=== PATIENT | male | born 1975 | race Caucasian/White ===

== ENCOUNTER → 2017-02-20 | Outpatient (CLI) | payer OTHER ==
[~2017-02-20] MED LIST: ASPI81TA21 PO; EFFSR75 PO; LISI-526 PO; LORA-741 PO; METO25TA56 PO; OMEP20CA9 PO
--- NOTE | 2017-02-21 06:31 | PAP/PSG TECHNICIAN REPORT ---
[facility] Regional Property Manager Polysomnogram Report Study name: None Report date: 02/21/2017 Study date: 02/20/2017 Referring Physician: Geovany LINDSEY M.D. Name: ELICIA PADGETT Interpreting Physician: Namita Lindsey M.D. Date of : 1975 Regional Property Manager: Bunny Dickinson RPSGT. Sex: Male Age: 41 StudyType: PSG Weight: 231 lbs 16 inches Height: 41 years, Height 6' 0" Neck Circum: BMI: 31.33 Medications: LEXAPRO 10 MG, LOPRESSOR 25 MG, ASPIRIN 81 MG, OMEPRAZOLE 20 MG Patient History PATIENT HAS HISTORY OF DAYTIME SLEEPINESS AND FATIGUE. HIS SAYS THAT HE SNORES HEAVILY AND ALSO GASPS FOR AIR. HE IS HERE TODAY FOR AN EVALUATION OF MADAI. ESS = 11 RM 7 Parameters Monitored NPSG: E1-M2, E2-M1, Fp1-M2, Fp2-M1, F3-M2, F4-M2, F4-M1, C3-M2, C4-M2, C4-M1, O1-M2, O2-M2, O2-M1, T3-M2, T4-M1, P3-M2, P4-M1, CHIN1, CHIN2, HR, EKG, Legs, PFLOW, SNOR, FLOW, CFLOW, Tidal Volume, THOR, ABDO, SpO2, PLTH, CPRESS, ETCO2 Wave, ETCO2, pH Sleep Architecture Sleep Stages Time at Lights Off 10:14:26 PM STAGES Time (min.) TST (%) Time at Lights On 6:04:56 AM Wake 76.5 -- Total Recording Time (TRT) 471.00 min. N1 24.0 6 Total Sleep Period (TSP) 423.5 min. N2 242.0 61 Total Sleep Time (TST) 394.0min. N3 50.0 13 Awake Time 77.0 min. REM 78.0 20 Wake after Sleep Onset 30.0 min. Sleep Efficiency (SE) 84 % Sleep Onset Latency (SUSI) 46.5 min. Number of Stage 1 Shifts None Awakenings 32 Stage Changes 124 Number of REM periods 9 REM 78.0 20 REM Latency 89.5 min. NREM 316.0 80 Body Position Analysis Supine Right Left Side Prone Vertical Total Sleep Time (min.) 316.4 90.9 58.3 149.17 0.0 0.0 Total Sleep Time (%) 62% 23% 15% 38 0% N/A% Total Sleep Time REM (min.) 18.5 44.0 15.5 None 0.0 0.0 Total Sleep Time NREM (min.) 226.3 46.9 42.8 None 0.0 0.0 Intermittent Wake (min.) 71.6 1.9 3.0 None 0.0 0.0 Total Sleep Period (%) 64% None None None None None Arousals Myoclonus (PLM) * Events Count Index Events Count Index Spontaneous 30 5 Events Awake (PLMW) 55 43.1 Respiratory 12 2.1 Events Asleep w/ Arousal (PLMA) 11 1.7 PLM 11 2 Events Asleep w/o Arousal (PLMS) 117 17.8 Snoring 8 1 Total Asleep 128 19.5 Total 59 9 Total 183 23 Respiratory Analysis * CA OA MA CH H RERA Total Count 0 1 0 0 99 4 100 Index 0.0 0.2 0.0 0 15.1 1 15.8 Mean Duration 0.0 42.7 0.0 0.00 25.4 17.6 25.3 Longest Duration 0.0 42.7 0.0 0.00 0.0 20.0 58.9 Respiratory Event Summary Total Supine ~Supine Right Left Prone REM NREM Apneas Count 1 1 0 0 0 N/A 0 1 Index 0.2 0 0 0.0 0.0 N/A 0 0 Hypopneas (4% Desat) Count 99 51 48 38 10 N/A 38 61 Index 15.1 12.5 19 25.1 10.3 N/A 29.2 11.6 Apneas & All Hypopneas Count 100 52 48 38 10 N/A 38 62 Index 15.2 13 19 25 10 N/A 29.2 11.8 Respiratory Events (Intelligence Applications+All Hyp+RERA) Count 100 53 51 40 11 N/A 38 62 Index 15.8 13 21 26.4 11.3 N/A 30.0 12.3 Respiratory Related Arousal Count 12 53 1 0 1 N/A 1 13 Index 2.1 3 0 0 1 N/A 1 2 Snoring Analysis Supine Right Left Prone REM NREM Total Snore duration 21.6 min Snores count 222 474 69 N/A 183 582 765 Snore mean duration 1.7 Sec Snores index 54 313 71 N/A 140.8 110.5 116.5 TST with snoring (%) 5.5% Desaturation Event Summary: Minimum %SpO2 Event Count Mean/Min/Max Duration(sec.) Desaturation Index % Time In Bed > 90 108 33.6 / 9.3 / 60.0 18.4 77.8 86 - 90 5 32.7 / 7.0 / 62.0 3.1 21.5 81 - 85 0 N/A 0.0 0.6 76 - 80 0 N/A 0.0 0.1 71 - 75 0 N/A 0.0 0.0 66 - 70 0 N/A 0.0 0.0 61 - 65 0 N/A 0.0 0.0 56 - 60 0 N/A 0.0 0.0 51 - 55 0 N/A 0.0 0.0 < 50 0 N/A 0.0 0.0 Total REM NREM Awake <50% 0.0 min. 0.0 min. 0.0 min. 0.0 min. 51 - 60% 0.0 min. 0.0 min. 0.0 min. 0.0 min. 61 - 70% 0.0 min. 0.0 min. 0.0 min. 0.0 min. 71 - 80% 0.4 min. 0.0 min. 0.1 min. 0.3 min. 81 - 90% 100.5 min. 17.8 min. 76.4 min. 6.4 min. 91 - 100% 352.8 min. 59.0 min. 233.2 min. 60.6 min. Average 92 92 91 92 Minimum SpO2 72 84 79 72 Desaturation Event Index 14.2 28.5 12.9 7.1 # Desat. Events below 89% 37 6 31 0 Time(%) with Saturation below 89% 4.7 0.5 3.8 0.4 Time(min.) with Saturation below 89% 21.5 2.4 17.4 1.8 Time (mins) REM (mins) NREM (mins) % of TST SpO2 Below 90% 88 27 N61 11.8 SpO2 Below 88% 20 0 0 2 Heart Rate Analysis Min (bpm) Max (bpm) Average (bpm) Awake 44 225 55 NREM 43 225 54 REM 45 84 60 Overall 43 225 55 Supplemental O2 Values Minimum O2 level: None Value Start Time End Time Regional Property Manager Comments Mr. Padgett slept in the right, left and supine positions. PVC's and PAC's noted. Leg movements noted. No bruxism noted. Snoring was noted and scored as a 3 on a scale of 1 through 5. (0=no snoring, 5=snoring loud enough to be heard through a closed door or down the moya way) Mr. Padgett awoke to use the restroom 1 time during the night. Mr. Padgett stated I did not sleep as well as I do when I am in my own bed. The final report will be interpreted and signed by a sleep physician. The completed physician report will then be placed in the patient medical record. Therapy (cm H2O) 0 TIB (min.) 470.5 TST (min.) 394.0 Sleep Onset (min.) 46.5 REM Onset From Sleep (min.) 89.5 Sleep Efficiency % 84 Wakefulness (%) 16 Wakefulness (min.) 77.0 NREM 1 (%) 6 NREM 1 (min.) 24.0 NREM 2 (%) 61 NREM 2 (min.) 242.0 NREM 3 (%) 13 NREM 3 (min.) 50.0 REM (%) 20 REM (min.) 78.0 # Arousals 59 Arousal Index 9 # Snore 765 Snore Index 116.5 AHI 15.2 AHI Supine 13 AHI Non-Supine 19 NREM AHI 11.8 REM AHI 29.2 RDI 15.8 # Obstructive Apnea 1 # Central Apnea 0 # Mixed Apnea 0 # Hypopneas 99 RERAs 4 Total Respiratory Events 104 Time Below SpO2 89% (min.) 19.8 Mean NREM SpO2 (%) 91 Mean REM SpO2 (%) 92 Mean Sleep SpO2 (%) 91 Min NREM SpO2 (%) 79 Min REM SpO2 (%) 84 Position Supine (min.) 316.4 Position Non-supine (min.) 149.2 LM Index Sleep 19.5 LM Index NREM 16.3 LM Index REM 32.3 Mean Heart Rate (bpm) 55 Min Heart Rate (bpm) 43
--- NOTE | 2017-03-11 11:57 | POLYSOMNOGRAPH REPORT ---
REFERRING PERSON: Dr. Lilliana Lindsey. CLIPPER AND TURNER: Bunny Dickinson. Mr. Carolina is a 41-year-old male with excessive daytime sleepiness and fatigue. His says that he snores heavily and also gasps for air from sleep. His [place] sleepiness scale score on the evening of this study is 11. BMI is 31.33. Following the technical and digital specifications of the [place] [employer] (AASM) a standard diagnostic polysomnogram was performed monitoring EEG, EOG, EMG (chin and leg deviations), oxygen saturation, body position, digital video, respiratory effort and airflow. The sleep Stage and event scoring was based on the AASM Manual for the Scoring of Sleep and Associated Events 2007 edition. Apneas are defined as a drop in the peak thermal sensor excursion by >90% of baseline for at least 10 seconds. Hypopneas were scored using the 4% oxygen desaturation rule (4A-Medicare) and a decrease in the nasal pressure excursions by >30% of baseline for at least 10 seconds. Respiratory effort-related arousal (RERA's) is defined as a sequence of breaths lasting at least 10 seconds characterized by increasing respiratory effort or flattening of the nasal pressure waveform leading to an arousal from sleep when the sequence of breaths does not meet criteria for an apnea or hypopnea. Apnea Hypopnea index (AHI) is defined as the number of apneas and hypopneas occurring in an hour of sleep. Respiratory disturbance index (RDI) is defined as the number of apneas, hypopneas, and RERA's occurring in an hour of sleep. Mr. Vergaras total sleep period time was 423.5 minutes. Total sleep time was 394 minutes. Sleep efficiency was 84%. Latency to sleep onset was 46.5 minutes with wake after sleep onset of 30 minutes. Total non-REM sleep time was 316 minutes. He spent 6% of that time in N1 sleep, 61% in N2 sleep and 13% in N3 sleep. REM latency was 89.5 minutes. Total REM sleep time was 78 minutes or 20% of total sleep time. There were 59 cortical arousals from sleep. 30 of these arousals were spontaneous, 12 were due to respiratory events, 11 due to periodic limb movements of sleep and 8 were due to snoring. There was 128 periodic limb movements noted on this test. Limb movement index was 19.5. Limb movement with arousal index was 1.7. There were no central, one obstructive and no mixed apneas on this test. However, there were 99 hypopnea and 4 RERA. Apnea-hypopnea index was 15.2 consistent with moderately severe sleep apnea. Supine AHI was 13, non-supine AHI was 19 and REM AHI was 29.2. There were 765 snoring events recorded. Total sleep time with snoring was 5.5%. Mean saturation was 92% with desaturations briefly to 72%. Saturations were less than 89% for 21.5 minutes of recorded time. This is significant nocturnal hypoxemia. PVCs and PACs were noted on EKG monitoring. Heart rates ranged from a low of 43 beats per minute to a high of 112 beats per minute. IMPRESSION AND PLAN: A 41-year-old male with evidence of moderately severe sleep apnea and significant nocturnal hypoxemia on this study. 1. This patient would likely benefit from positive airway pressure therapy. He should return to the sleep lab for a full night titration and then based on those results, be started on equipment at home. A download from his machine should be reviewed in 1 month both to check compliance as well as AHI and further pressure adjustments can occur at that time. 2. Alternatively, this patient could be started on auto titrating CPAP pressures of 5-15 cm. A download reviewed in 1 month and set to optimal pressure at that time. 3. Should this patient be unwilling or unable to tolerate CPAP therapy, he should be referred to ear, nose and throat or oral surgery/dental medicine to discuss alternative treatments for sleep disordered breathing.
== END | disposition home or self-care (01) ==
LOC: C.NEUR 21:00
PROVIDERS: ATTEND Family Medicine
DX: G47.33 Obstructive sleep apnea (adult) (pediatric) (principal)

== ENCOUNTER 2017-08-05 18:14 | Observation (INO) | payer OTHER ==
[~2017-08-05] VITALS: Ht 182.9 cm; Wt 105.1 kg
[2017-08-05] MEDS ORDERED: ASPIRIN 81 MG CHEW PO STA (19:04)
--- NOTE | 2017-08-05 19:18 | DIAGNOSTIC IMAGING REPORT ---
CHEST ONE VIEW PORTABLE HISTORY: Atypical CHEST PAIN COMPARISON: Chest 11/04/2013. FINDINGS: The lungs are clear. Cardiac silhouette is normal in size. No pleural effusions. No pneumothorax. IMPRESSION: No acute process. Electronically signed by: David Fairchild M.D. 08/05/2017 7:17 PM Dictated Date/Time: 08/05/2017 7:14 PM
[2017-08-05 19:37] LABS: BASO % 0.6 %; BASO ABS # 0.03 K/uL (0-0.2); COMPLETE YES; EOS % 3.9 %; HEMATOCRIT 46.6 % (42-52); IG% 0.2 %; LYMPH % 28.7 %; LYMPH ABS # 1.39 K/uL (1.2-3.4); MEAN CELL VOLUME 84.1 fL (80-100); MEAN CORPUSCULAR HEMOGLOBIN 29.6 pg (25-34); MEAN CORPUSCULAR HGB CONC 35.2 g/dl (32-36); MEAN PLATELET VOLUME 9.9 fL (7.4-10.4); MONO % 8.5 %; NEUT % 58.1 %; PLATELET COUNT 186 K/uL (130-400); RED BLOOD COUNT 5.54 M/uL (4.7-6.1); WHITE BLOOD COUNT 4.84 K/uL (4.8-10.8)
[2017-08-05 19:58] LABS: ALT/SGPT 45 U/L (12-78); BLOOD UREA NITROGEN 10 mg/dl (7-18); BUN/CREATININE RATIO 10.7 (10-20); CALCIUM 9.1 mg/dl (8.5-10.1); CARBON DIOXIDE 26 mmol/L (21-32); CHLORIDE 106 mmol/L (98-107); CREATININE 0.96 mg/dl (0.60-1.40); GLUCOSE 90 mg/dl (70-99); POTASSIUM 3.7 mmol/L (3.5-5.1); SODIUM 139 mmol/L (136-145)
[2017-08-05 20:04] LABS: ALKALINE PHOSPHATASE 68 U/L (45-117); AST/SGOT 27 U/L (15-37); CKMB/CK RATIO 1.8 (0-3.0)
--- NOTE | 2017-08-05 20:22 | EMERGENCY ROOM VISIT NOTE ---
History Report prepared by Serjio: Noelle Faust Under the Supervision of: Dr. Gordo Acosta M.D. First contact with patient: 19:01 Chief Complaint: CARDIAC ASSESSMENT Stated Complaint: CHEST PAIN, HEAVINESS IN CHEST Nursing Triage Summary: pt reports started with mid sternal chest heaviness over the weekend , reports exertional sob with ST today denies NV History of Present Illness The patient is a 42 year old male who presents to the Emergency Room with complaints of intermittent left sided chest pain for the past 3 days. He rates his discomfort as a 3/10 and describes it as feeling like heaviness. Today he developed shortness of breath with exertion, some diaphoresis, nausea and a headache, so he came to the ED. He admits to a strong family history of early heart disease in the 's. The patient has a history of hypertension and notes he takes daily Metoprolol and Lisinopril. He did take his Metoprolol this morning but has yet to take the Lisinopril. He follows with Dr. Alexander of [facility]. He has not undergone a stress test in over 4 years. The patient denies LOC, fevers, chills, visual changes, neck pain, vomiting, abdominal pain, back pain, melena, hematochezia, urinary symptoms, numbness, weakness, lymphadenopathy, rash, or other complaints. Source of History: patient Onset: 3 days DIRECTOR OF EPIDEMIOLOGY Position: chest Symptom Intensity: 3/10 Quality: other (heaviness) Timing: intermittent Associated Symptoms: + headache, + SOB, + nausea Review of Systems See HPI for pertinent positives and negatives. A total of ten systems were reviewed and were otherwise negative. Past Medical & Surgical Medical Problems: (1) Sleep apnea Family History Heart disease Social History Smoking Status: Never Smoker Alcohol Use: none Drug Use: none Marital Status: Housing Status: lives with family Occupation Status: employed Current/Historical Medications Scheduled Aspirin Enteric Coated (Ecotrin Or Generic), 81 MG PO DAILY Lisinopril (Prinivil), 30 MG PO QPM Metoprolol Tartrate (Lopressor) (Lopressor), 25 MG PO QAM Omeprazole (Prilosec), 20 MG PO DAILY Scheduled PRN Lorazepam (Ativan), 0.5 MG PO DAILY PRN for Anxiety Allergies Coded Allergies: Naproxen (Verified Allergy, tongue swelling, 11/04/13) Physical Exam Vital Signs Date Time Temp Pulse Resp B/P (MAP) Pulse Ox O2 Delivery O2 Flow Rate FiO2 08/05/17 21:00 73 17 127/86 96 Room Air 08/05/17 20:33 70 20 138/79 96 Room Air 08/05/17 19:40 81 21 138/86 96 Room Air 08/05/17 19:23 77 18 117/81 95 Room Air 08/05/17 19:15 71 08/05/17 19:09 94 Room Air 08/05/17 18:17 36.6 66 18 157/97 97 Room Air Physical Exam GENERAL: Awake, alert, well-appearing, in no distress HENT: Normocephalic, atraumatic. Oropharynx unremarkable. EYES: Normal conjunctiva. Sclera non-icteric. NECK: Supple. No nuchal rigidity. FROM. No JVD. RESPIRATORY: Clear to auscultation. CARDIAC: Regular rate, normal rhythm. Extremities warm and well perfused. Pulses equal. ABDOMEN: Soft, non-distended. No tenderness to palpation. No rebound or guarding. No masses. RECTAL: Deferred. MUSCULOSKELETAL: Chest examination reveals no tenderness. The back is symmetrical on inspection without obvious abnormality. There is no CVA tenderness to palpation. No joint edema. LOWER EXTREMITIES: Calves are equal size bilaterally and non-tender. No edema. No discoloration. NEURO: Normal sensorium. No sensory or motor deficits noted. SKIN: No rash or jaundice noted. Medical Decision & Procedures ER Provider Diagnostic Interpretation: Radiology results as stated below per my review and radiologist interpretation: CHEST ONE VIEW PORTABLE HISTORY: Atypical CHEST PAIN COMPARISON: Chest 11/04/2013. FINDINGS: The lungs are clear. Cardiac silhouette is normal in size. No pleural effusions. No pneumothorax. IMPRESSION: No acute process. Electronically signed by: David Fairchild M.D. 08/05/2017 7:17 PM Laboratory Results 08/05/17 19:28 Red Blood Count 5.54, Mean Corpuscular Volume 84.1, Mean Corpuscular Hemoglobin 29.6, Mean Corpuscular Hemoglobin Concent 35.2, Mean Platelet Volume 9.9, Neutrophils (%) (Auto) 58.1, Lymphocytes (%) (Auto) 28.7, Monocytes (%) (Auto) 8.5, Eosinophils (%) (Auto) 3.9, Basophils (%) (Auto) 0.6, Neutrophils # (Auto) 2.81, Lymphocytes # (Auto) 1.39, Monocytes # (Auto) 0.41, Eosinophils # (Auto) 0.19, Basophils # (Auto) 0.03 08/05/17 19:28 Test 08/05/17 19:21 08/05/17 19:28 Prothrombin Time 10.6 SECONDS (9.0-12.0) Prothromb Time International Ratio 1.0 (0.9-1.1) White Blood Count 4.84 K/uL (4.8-10.8) Red Blood Count 5.54 M/uL (4.7-6.1) Hemoglobin 16.4 g/dL (14.0-18.0) Hematocrit 46.6 % (42-52) Mean Corpuscular Volume 84.1 fL (80-100) Mean Corpuscular Hemoglobin 29.6 pg (25-34) Mean Corpuscular Hemoglobin Concent 35.2 g/dl (32-36) Platelet Count 186 K/uL (130-400) Mean Platelet Volume 9.9 fL (7.4-10.4) Neutrophils (%) (Auto) 58.1 % Lymphocytes (%) (Auto) 28.7 % Monocytes (%) (Auto) 8.5 % Eosinophils (%) (Auto) 3.9 % Basophils (%) (Auto) 0.6 % Neutrophils # (Auto) 2.81 K/uL (1.4-6.5) Lymphocytes # (Auto) 1.39 K/uL (1.2-3.4) Monocytes # (Auto) 0.41 K/uL (0.11-0.59) Eosinophils # (Auto) 0.19 K/uL (0-0.5) Basophils # (Auto) 0.03 K/uL (0-0.2) RDW Standard Deviation 37.6 fL (36.4-46.3) RDW Coefficient of Variation 12.3 % (11.5-14.5) Immature Granulocyte % (Auto) 0.2 % Immature Granulocyte # (Auto) 0.01 K/uL (0.00-0.02) Anion Gap 7.0 mmol/L (3-11) Est Creatinine Clear Calc Drug Dose 126.7 ml/min Estimated GFR () 112.5 Estimated GFR (Non- 97.1 BUN/Creatinine Ratio 10.7 (10-20) Calcium Level 9.1 mg/dl (8.5-10.1) Magnesium Level 2.0 mg/dl (1.8-2.4) Total Bilirubin 1.0 mg/dl (0.2-1) Direct Bilirubin 0.2 mg/dl (0-0.2) Aspartate Amino Transf (AST/SGOT) 27 U/L (15-37) Alanine Aminotransferase (ALT/SGPT) 45 U/L (12-78) Alkaline Phosphatase 68 U/L (45-117) Total Protein 7.7 gm/dl (6.4-8.2) Albumin 4.3 gm/dl (3.4-5.0) Lipase 152 U/L (73-393) Laboratory results reviewed by me Medications Administered Medications (Trade) Dose Ordered Sig/Atif Route Start Time Stop Time Status Last Admin Dose Admin Aspirin (Aspirin Chew) 324 mg NOW STAT PO 08/05/17 19:04 08/05/17 19:08 DC 08/05/17 19:35 324 MG ECG Rate (beats per minute): 71 Rhythm: sinus with SA Findings: Q waves (Inferior), no acute ischemic change, no ectopy Change: no significant change (from EKG on 11/04/2013) ED Course 1902: The patient was evaluated in room B12. A complete history and physical exam was performed. 1903: Aspirin 324 mg PO. 2021: I discussed the patients case with Dr. Bianchi, [facility] Hospitalist. The patient will be further evaluated. 2024: I reevaluated the patient. He is resting comfortably. I discussed my recommendation he remain in the hospital for further evaluation and management and he verbalized complete understanding and agreement. Medical Decision Triage Nursing notes reviewed. The patient's presentation and history were concerning for chest pain. Etiologies such as cardiac ischemia, aortic dissection, pulmonary embolism, pneumonia, pneumothorax, musculoskeletal, infections, gastrointestinal, as well as others were entertained. The patient was evaluated. Clinically he was doing well. He was given aspirin. His ECG did not reveal any evidence of acute ischemic change. He has had on and off chest pain all weekend. He has an extensive family history of early coronary disease. He states that over 4 years since his last stress test. The patient had an unremarkable chest x-ray. His CBC, chemistry panel, LFTs, lipase, and cardiac markers were unremarkable. The patient has high risk for coronary disease. He has a concerning story given the left-sided pain he had some diaphoresis as well as shortness of breath. The patient had a consultation placed with internal medicine and was evaluated in the Emergency Room for further management. Medication Reconcilliation Current Medication List: was personally reviewed by me Blood Pressure Screening Patient's blood pressure: Normal blood pressure Blood pressure disposition: Did not require urgent referral Consults Time Called: 2019 Consulting Physician[facility] Return[facility] Call: 2021 I discussed the patients case with Noe Bermudez. The patient will be further evaluated. Impression Primary Impression: Left sided chest pain Scribe Attestation The scribe's documentation has been prepared under my direction and personally reviewed by me in its entirety. I confirm that the note above accurately reflects all work, treatment, procedures, and medical decision making performed by me. Departure Information Dispostion Being Evaluated By Hospitalist Bela Monae M.D. (PCP) Patient Instructions My [facility]
[2017-08-05 22:30] VITALS: BP 127/81; PULSE 63; TEMP 36.5; O2SAT 96
[2017-08-05] MEDS ORDERED: NITROGLYCERIN 0.4 MG SL PER TAB CHARGE SL PRN (22:30)
[2017-08-05] MEDS ORDERED: MoRPHine SULFATE 2 MG/ML CARP IV PRN (22:30)
[2017-08-05] MEDS ORDERED: ACETAMINOPHEN 325 MG TAB PO PRN (22:30)
[2017-08-05] MEDS ORDERED: ONDANSETRON INJ 2 MG/ML 2 ML VIAL IV PRN (22:30)
[2017-08-05] MEDS ORDERED: POLYETHYLENE (MIRALAX) 17 GM PACK PO PRN (22:30)
[2017-08-05] MEDS ORDERED: LORAZEPAM 0.5 MG TAB PO PRN (22:30)
[2017-08-05] MEDS ORDERED: ATORVASTATIN 40 MG TAB PO ONE (22:30)
[2017-08-05 22:35] VITALS: BP 127/81; PULSE 63; TEMP 36.5; O2SAT 96; Ht 182.9 cm; Wt 105.1 kg
--- NOTE | 2017-08-05 22:36 | History and Physical ---
History & Physical Date & Time of Service: Aug 05, 2017 at 22:28 Chief Complaint: Chest Pain, Heaviness In Chest Primary Care Physician: Bela Lopez M.D. History of Present Illness Source: patient, family, clinic records, hospital records 42 yo M with h/o HTN and strong family history of early CAD presents with constant chest pain that began on Saturday. No precipitating triggers making the pain worse except for stress, and he defines the discomfort as a pressure. He states that he was alone at work tonight and was able to run flights of stairs without making the pain or shortness of breath any worse, but the prolonged nature of the abnormal pressure is what made him concerned to come in. Per his he has had multiple episodes of discomfort in his chest that made her worried but he refused to see a doctor during those times. The frequency of this is described as twice weekly on average. 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 He does reports some diaphoresis, nausea and shortness of breath that are associated with the chest pain. He otherwise denies any fevers, chills, visual changes, neck pain, vomiting, abdominal or back pain, GI bleeding issues, urinary issues, numbness weakness or any skin changes. He reports that his last stress test was over 4 years ago. 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 Surgical Problems: (1) S/P appy Status: Chronic Family History Heart disease Social History Smoking Status: Never Smoker Smokeless Tobacco Use: Unknown Drug Use: none Marital Status: Occupational Status: employed Immunizations History of Influenza Vaccine: No History of Tetanus Vaccine?: Yes History of Pneumococcal: Yes History of Hepatitis B Vaccine: Yes Multi-Drug Resistant Organisms History of MDRO: No Allergies Coded Allergies: Naproxen (Verified Allergy, tongue swelling, 11/04/13) Home Medications Scheduled Aspirin Enteric Coated (Ecotrin Or Generic), 81 MG PO DAILY Lisinopril (Prinivil), 30 MG PO QPM Metoprolol Tartrate (Lopressor) (Lopressor), 25 MG PO QAM Omeprazole (Prilosec), 20 MG PO DAILY Scheduled PRN Lorazepam (Ativan), 0.5 MG PO DAILY PRN for Anxiety Review of Systems At least ten systems reviewed and negative except as indicated in HPI. Physical Exam Vital Signs Date Time Temp Pulse Resp B/P (MAP) Pulse Ox O2 Delivery O2 Flow Rate FiO2 08/05/17 22:16 73 16 130/88 97 08/05/17 21:43 73 16 130/88 97 Room Air 08/05/17 21:00 73 17 127/86 96 Room Air 08/05/17 20:33 70 20 138/79 96 Room Air 08/05/17 19:40 81 21 138/86 96 Room Air 08/05/17 19:23 77 18 117/81 95 Room Air 08/05/17 19:15 71 08/05/17 19:09 94 Room Air 08/05/17 18:17 36.6 66 18 157/97 97 Room Air General Appearance: WD/WN, no apparent distress Head: normocephalic, atraumatic Eyes: normal inspection, PERRL, sclerae normal ENT: hearing grossly normal, pharynx normal Neck: supple, no adenopathy, no JVD, trachea midline Respiratory/Chest: chest non-tender, lungs clear, normal breath sounds, no respiratory distress, no accessory muscle use Cardiovascular: regular rate, rhythm, no edema, no gallop, no JVD, no murmur, normal peripheral pulses Abdomen/GI: normal bowel sounds, non tender, soft Back: normal inspection Extremities/Musculoskelatal: normal inspection, no calf tenderness, no pedal edema 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, no motor/sensory deficits, alert, normal mood/affect, oriented x 3 Skin: normal color, warm/dry, no rash Diagnostics Laboratory Results 08/05/17 19:28 Red Blood Count 5.54, Mean Corpuscular Volume 84.1, Mean Corpuscular Hemoglobin 29.6, Mean Corpuscular Hemoglobin Concent 35.2, Mean Platelet Volume 9.9, Neutrophils (%) (Auto) 58.1, Lymphocytes (%) (Auto) 28.7, Monocytes (%) (Auto) 8.5, Eosinophils (%) (Auto) 3.9, Basophils (%) (Auto) 0.6, Neutrophils # (Auto) 2.81, Lymphocytes # (Auto) 1.39, Monocytes # (Auto) 0.41, Eosinophils # (Auto) 0.19, Basophils # (Auto) 0.03 08/05/17 19:28 Test 08/05/17 19:28 08/05/17 22:25 White Blood Count 4.84 K/uL (4.8-10.8) Red Blood Count 5.54 M/uL (4.7-6.1) Hemoglobin 16.4 g/dL (14.0-18.0) Hematocrit 46.6 % (42-52) Mean Corpuscular Volume 84.1 fL (80-100) Mean Corpuscular Hemoglobin 29.6 pg (25-34) Mean Corpuscular Hemoglobin Concent 35.2 g/dl (32-36) Platelet Count 186 K/uL (130-400) Mean Platelet Volume 9.9 fL (7.4-10.4) Neutrophils (%) (Auto) 58.1 % Lymphocytes (%) (Auto) 28.7 % Monocytes (%) (Auto) 8.5 % Eosinophils (%) (Auto) 3.9 % Basophils (%) (Auto) 0.6 % Neutrophils # (Auto) 2.81 K/uL (1.4-6.5) Lymphocytes # (Auto) 1.39 K/uL (1.2-3.4) Monocytes # (Auto) 0.41 K/uL (0.11-0.59) Eosinophils # (Auto) 0.19 K/uL (0-0.5) Basophils # (Auto) 0.03 K/uL (0-0.2) RDW Standard Deviation 37.6 fL (36.4-46.3) RDW Coefficient of Variation 12.3 % (11.5-14.5) Immature Granulocyte % (Auto) 0.2 % Immature Granulocyte # (Auto) 0.01 K/uL (0.00-0.02) Anion Gap 7.0 mmol/L (3-11) Est Creatinine Clear Calc Drug Dose 126.7 ml/min Estimated GFR () 112.5 Estimated GFR (Non- 97.1 BUN/Creatinine Ratio 10.7 (10-20) Calcium Level 9.1 mg/dl (8.5-10.1) Total Bilirubin 1.0 mg/dl (0.2-1) Direct Bilirubin 0.2 mg/dl (0-0.2) Aspartate Amino Transf (AST/SGOT) 27 U/L (15-37) Alanine Aminotransferase (ALT/SGPT) 45 U/L (12-78) Alkaline Phosphatase 68 U/L (45-117) Total Creatine Kinase 180 U/L (39-308) Creatine Kinase MB 3.2 ng/ml (0.5-3.6) Creatine Kinase MB Ratio 1.8 (0-3.0) Troponin I < 0.015 ng/ml (0-0.045) Total Protein 7.7 gm/dl (6.4-8.2) Albumin 4.3 gm/dl (3.4-5.0) Lipase 152 U/L (73-393) Results Past 24 Hours Test 08/05/17 19:28 08/05/17 22:25 Range/Units White Blood Count 4.84 4.8-10.8 K/uL Red Blood Count 5.54 4.7-6.1 M/uL Hemoglobin 16.4 14.0-18.0 g/dL Hematocrit 46.6 42-52 % Mean Corpuscular Volume 84.1 80-100 fL Mean Corpuscular Hemoglobin 29.6 25-34 pg Mean Corpuscular Hemoglobin Concent 35.2 32-36 g/dl Platelet Count 186 130-400 K/uL Mean Platelet Volume 9.9 7.4-10.4 fL Neutrophils (%) (Auto) 58.1 % Lymphocytes (%) (Auto) 28.7 % Monocytes (%) (Auto) 8.5 % Eosinophils (%) (Auto) 3.9 % Basophils (%) (Auto) 0.6 % Neutrophils # (Auto) 2.81 1.4-6.5 K/uL Lymphocytes # (Auto) 1.39 1.2-3.4 K/uL Monocytes # (Auto) 0.41 0.11-0.59 K/uL Eosinophils # (Auto) 0.19 0-0.5 K/uL Basophils # (Auto) 0.03 0-0.2 K/uL RDW Standard Deviation 37.6 36.4-46.3 fL RDW Coefficient of Variation 12.3 11.5-14.5 % Immature Granulocyte % (Auto) 0.2 % Immature Granulocyte # (Auto) 0.01 0.00-0.02 K/uL Sodium Level 139 136-145 mmol/L Potassium Level 3.7 3.5-5.1 mmol/L Chloride Level 106 98-107 mmol/L Carbon Dioxide Level 26 21-32 mmol/L Anion Gap 7.0 3-11 mmol/L Blood Urea Nitrogen 10 7-18 mg/dl Creatinine 0.96 0.60-1.40 mg/dl Est Creatinine Clear Calc Drug Dose 126.7 ml/min Estimated GFR () 112.5 Estimated GFR (Non- 97.1 BUN/Creatinine Ratio 10.7 10-20 Random Glucose 90 70-99 mg/dl Calcium Level 9.1 8.5-10.1 mg/dl Total Bilirubin 1.0 0.2-1 mg/dl Direct Bilirubin 0.2 0-0.2 mg/dl Aspartate Amino Transf (AST/SGOT) 27 15-37 U/L Alanine Aminotransferase (ALT/SGPT) 45 12-78 U/L Alkaline Phosphatase 68 45-117 U/L Total Creatine Kinase 180 39-308 U/L Creatine Kinase MB 3.2 0.5-3.6 ng/ml Creatine Kinase MB Ratio 1.8 0-3.0 Troponin I < 0.015 0-0.045 ng/ml Total Protein 7.7 6.4-8.2 gm/dl Albumin 4.3 3.4-5.0 gm/dl Lipase 152 73-393 U/L Diagnostic Radiology CHEST ONE VIEW PORTABLE HISTORY: Atypical CHEST PAIN COMPARISON: Chest 11/04/2013. FINDINGS: The lungs are clear. Cardiac silhouette is normal in size. No pleural effusions. No pneumothorax. IMPRESSION: No acute process. EKG SR 71 Impression Assessment and Plan 42 yo M with family history of CAD and HTN presents with chest pain. 1. Chest pain- risk factors for CAD including family history and HTN. ASA, Lipitor 80, nitro given. Currently pain-free. Trend trops. Morphine/Nitro PRN. 2. HTN-cont current meds 3. MADAI-CPAP ordered DVT proph-Lovenox Full Code Dispo-tele [facility] Level of Care Telemetry Resuscitation Status FULL RESUSCITATION VTE Prophylaxis VTE Risk Assessment Done? Y/N: Yes Risk Level: Moderate Given or contraindicated: Enoxaparin (Lovenox)SQ
[2017-08-05 23:23] LABS: PROTHROMBIN TIME (PATIENT) 10.6 SECONDS (9.0-12.0)
[2017-08-05 23:38] VITALS: PULSE 70; O2SAT 97
[2017-08-06 00:12] VITALS: BP 126/80; PULSE 64; TEMP 36.5; O2SAT 93
[2017-08-06 01:51] LABS: CKMB/CK RATIO 2.4 (0-3.0)
[2017-08-06 04:00] VITALS: BP 119/72; PULSE 55; TEMP 36.5; O2SAT 98
[2017-08-06 07:16] LABS: HEMATOCRIT 42.8 % (42-52); MEAN CELL VOLUME 84.8 fL (80-100); MEAN CORPUSCULAR HEMOGLOBIN 30.3 pg (25-34); MEAN CORPUSCULAR HGB CONC 35.7 g/dl (32-36); MEAN PLATELET VOLUME 9.8 fL (7.4-10.4); PLATELET COUNT 148 K/uL (130-400); RED BLOOD COUNT 5.05 M/uL (4.7-6.1)
[2017-08-06 07:23] LABS: PROTHROMBIN TIME (PATIENT) 10.7 SECONDS (9.0-12.0)
[2017-08-06 07:26] VITALS: BP 113/74; PULSE 61; TEMP 36.7; O2SAT 95
[2017-08-06 08:04] LABS: BLOOD UREA NITROGEN 10 mg/dl (7-18); BUN/CREATININE RATIO 11.9 (10-20); CALCIUM 8.4 mg/dl (8.5-10.1); CARBON DIOXIDE 25 mmol/L (21-32); CHLORIDE 107 mmol/L (98-107); CREATININE 0.82 mg/dl (0.60-1.40); GLUCOSE 91 mg/dl (70-99); POTASSIUM 3.7 mmol/L (3.5-5.1); SODIUM 140 mmol/L (136-145)
[2017-08-06 08:10] LABS: CHOLESTEROL 163 mg/dl (0-200); CKMB/CK RATIO 2.3 (0-3.0); HDL CHOLESTEROL 41 mg/dl; LDL CHOLESTEROL CALCULATED 99 mg/dl; TRIGLYCERIDES 113 mg/dl (0-150); VERY LOW DENSITY LIPOPROT CALC 23 mg/dl
[2017-08-06] MEDS ORDERED: PANTOprazole SOD 40 MG TAB PO SCH (09:00)
[2017-08-06] MEDS ORDERED: ASPIRIN 81 MG ECTAB PO SCH (09:00)
[2017-08-06] MEDS ORDERED: ENOXAPARIN 40 MG/0.4 ML SYR SC SCH (09:00)
[2017-08-06] MEDS ORDERED: LISINOPRIL 20 MG TAB PO SCH (09:00)
[2017-08-06] MEDS ORDERED: METOPROLOL TARTRATE 25 MG TAB PO SCH (09:00)
[2017-08-06] MEDS ORDERED: PERFLUTREN LIPID MICROSPHERE (DEFINITY) IV ONE (10:39)
[2017-08-06 11:55] VITALS: BP 111/73; PULSE 74; TEMP 36.7; O2SAT 95
--- NOTE | 2017-08-06 12:52 | Progress Note ---
Internal Med Progress Note Date of Service: Aug 06, 2017. Provider Documentation: SUBJECTIVE: The patient was seen and examined Admitted with Chest pain with strong Family H/O IHD Denies any more pain OBJECTIVE: Vital Signs-as noted below Exam: General-NO distress at rest Eyes-normal ENT-normal Neck-supple Lungs-clear to ausucltate bilaterally Heart-Regular,no murmur Abdomen-Benign,no masses,bowel sound present Extremities-NO edema Neuro-AAox3 Lab data as noted below. ASSESSMENT & PLAN: 42 yo M with family history of CAD and HTN presents with chest pain. Chest pain- Risk factors for CAD including family history and HTN. ASA, Serial Dior are neg for any ACS ,EKGs -negative for any Ischemia Continue Lipitor 80, nitro given. Appreciate cardiology input Will have Stress test today stress ECHO:: Nonischemic exercise stress echocardiogram. * Normal HR and BP response to exercise. * Above average exercise tolerance. * At rest, normal LV chamber size with midl concentric LVH. * Normal LV systolic function, EF 55-60%. * No segmental left ventricular wall motion abnormalities are noted. * Grade I diastolic dysfunction. * Mild RV chamber enlargement, normal systolic function. * No significant valvular pathology. MADAI-CPAP ordered DVT proph-Lovenox Full Code Dispo- Likely to go home after the Stress test Vital Signs: Date Time Temp Pulse Resp B/P (MAP) Pulse Ox O2 Delivery O2 Flow Rate FiO2 08/06/17 15:17 36.5 58 20 107/73 (84) 94 Room Air 08/06/17 12:00 Room Air 08/06/17 11:55 36.7 74 18 111/73 (86) 95 Room Air 08/06/17 08:00 Room Air 08/06/17 07:26 36.7 61 16 113/74 (87) 95 Room Air 08/06/17 04:00 36.5 55 20 119/72 (88) 98 CPAP 08/06/17 04:00 Room Air 08/06/17 00:12 36.5 64 20 126/80 (95) 93 Room Air 08/06/17 00:00 Room Air 08/05/17 23:38 70 97 08/05/17 22:35 36.5 63 16 127/81 96 Room Air 08/05/17 22:30 36.5 63 16 127/81 (96) 96 Room Air CPAP 08/05/17 22:16 73 16 130/88 97 08/05/17 21:43 73 16 130/88 97 Room Air 08/05/17 21:00 73 17 127/86 96 Room Air 08/05/17 20:33 70 20 138/79 96 Room Air 08/05/17 19:40 81 21 138/86 96 Room Air 08/05/17 19:23 77 18 117/81 95 Room Air 08/05/17 19:15 71 08/05/17 19:09 94 Room Air 08/05/17 18:17 36.6 66 18 157/97 97 Room Air Lab Results: Results Past 24 Hours Test 08/05/17 19:21 08/05/17 19:28 08/06/17 00:20 08/06/17 06:43 Range/Units Prothrombin Time 10.6 10.7 9.0-12.0 SECONDS Prothromb Time International Ratio 1.0 1.0 0.9-1.1 White Blood Count 4.84 3.10 4.8-10.8 K/uL Red Blood Count 5.54 5.05 4.7-6.1 M/uL Hemoglobin 16.4 15.3 14.0-18.0 g/dL Hematocrit 46.6 42.8 42-52 % Mean Corpuscular Volume 84.1 84.8 80-100 fL Mean Corpuscular Hemoglobin 29.6 30.3 25-34 pg Mean Corpuscular Hemoglobin Concent 35.2 35.7 32-36 g/dl Platelet Count 186 148 130-400 K/uL Mean Platelet Volume 9.9 9.8 7.4-10.4 fL Neutrophils (%) (Auto) 58.1 % Lymphocytes (%) (Auto) 28.7 % Monocytes (%) (Auto) 8.5 % Eosinophils (%) (Auto) 3.9 % Basophils (%) (Auto) 0.6 % Neutrophils # (Auto) 2.81 1.4-6.5 K/uL Lymphocytes # (Auto) 1.39 1.2-3.4 K/uL Monocytes # (Auto) 0.41 0.11-0.59 K/uL Eosinophils # (Auto) 0.19 0-0.5 K/uL Basophils # (Auto) 0.03 0-0.2 K/uL RDW Standard Deviation 37.6 37.6 36.4-46.3 fL RDW Coefficient of Variation 12.3 12.3 11.5-14.5 % Immature Granulocyte % (Auto) 0.2 % Immature Granulocyte # (Auto) 0.01 0.00-0.02 K/uL Sodium Level 139 140 136-145 mmol/L Potassium Level 3.7 3.7 3.5-5.1 mmol/L Chloride Level 106 107 98-107 mmol/L Carbon Dioxide Level 26 25 21-32 mmol/L Anion Gap 7.0 8.0 3-11 mmol/L Blood Urea Nitrogen 10 10 7-18 mg/dl Creatinine 0.96 0.82 0.60-1.40 mg/dl Est Creatinine Clear Calc Drug Dose 126.7 147.1 ml/min Estimated GFR () 112.5 126.4 Estimated GFR (Non- 97.1 109.1 BUN/Creatinine Ratio 10.7 11.9 10-20 Random Glucose 90 91 70-99 mg/dl Calcium Level 9.1 8.4 8.5-10.1 mg/dl Magnesium Level 2.0 1.8-2.4 mg/dl Total Bilirubin 1.0 0.2-1 mg/dl Direct Bilirubin 0.2 0-0.2 mg/dl Aspartate Amino Transf (AST/SGOT) 27 15-37 U/L Alanine Aminotransferase (ALT/SGPT) 45 12-78 U/L Alkaline Phosphatase 68 45-117 U/L Total Creatine Kinase 180 138 118 39-308 U/L Creatine Kinase MB 3.2 3.3 2.7 0.5-3.6 ng/ml Creatine Kinase MB Ratio 1.8 2.4 2.3 0-3.0 Troponin I < 0.015 < 0.015 < 0.015 0-0.045 ng/ml Total Protein 7.7 6.4-8.2 gm/dl Albumin 4.3 3.4-5.0 gm/dl Lipase 152 73-393 U/L Triglycerides Level 113 0-150 mg/dl Cholesterol Level 163 0-200 mg/dl HDL Cholesterol 41 mg/dl LDL Cholesterol, Calculated 99 mg/dl VLDL Cholesterol, Calculated 23 mg/dl Cholesterol/HDL Ratio 4.0
--- NOTE | 2017-08-06 14:36 | CARDIOLOGY CONSULTATION ---
DATE OF CONSULTATION: 08/06/2017 CONSULTATION REQUESTED BY: Tia Bianchi DO REASON FOR CONSULTATION: Chest pain. HISTORY OF PRESENT ILLNESS: Mr. Carolina is a very pleasant 42-year-old gentleman who normally follows with Dr. Alexander of our cardiology practice. He presented to [facility] Emergency Department on 08/05/2017 with a complaint of chest discomfort. The patient states that he has been having chest discomfort off and on for over the last month. He states it was just something that he noticed, but it progressively worsened over the last month. He describes it as a left-sided dull achy sensation underneath his left breast, that is rather constant in nature. There would be days it happened and days it would not. There are no associated symptoms with it. Specifically, denied any associated shortness of breath, diaphoresis, nausea, palpitations, lightheadedness, dizziness, or syncope. There is no radiation of the discomfort, and there is no association with activity or positioning. Then on 08/05/2017, patient was at work, not doing anything overly strenuous and not feeling significantly stressed or anxious, when the chest pain again occurred; however, this time it was much more severe. There was also radiation of the discomfort down his left shoulder. He became short of breath and felt warm. At that point, he came into the Emergency Department. In the Emergency Department, his initial workup was unremarkable, he was admitted to telemetry. Overnight, his symptoms resolved spontaneously and he underwent stress echocardiogram on the morning of the . PAST SURGICAL HISTORY: 1. Appendectomy. 2. Upper endoscopy. MEDICAL ILLNESSES: 1. Obstructive sleep apnea, on nocturnal CPAP. 2. Enlarged right ventricle. 3. Dyslipidemia. 4. Hypertension. FAMILY HISTORY: Remarkable for father who had his first myocardial infarction in his 30s, at age 57. Three of his brothers have had bypass surgery; one in his mid 30s, one in his 40s, and one in his 50s. Both his mother and brother have a history of abdominal aortic aneurysms. SOCIAL HISTORY: Denies any tobacco use. Drinks occasional alcohol. Denies any recreational drug use. He is and lives at home with his . He has 2 children who are grown and in good health. 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 He does not exercise. REVIEW OF SYSTEMS: As per HPI. All other review of systems reviewed and negative at this time. ALLERGIES: NAPROXEN. MEDICATIONS AN OUTPATIENT: 1. Aspirin 81 mg daily. 2. Lisinopril 30 mg daily. 3. Metoprolol tartrate 25 mg b.i.d. 4. Omeprazole daily. 5. Lexapro daily. PHYSICAL EXAMINATION: VITALS: Temperature 36.7, pulse 61, respiratory rate 12, blood pressure 113/74. GENERAL: Awake, alert, oriented x3 in no acute distress. HEENT: Normocephalic, atraumatic. Pupils equal, round, and reactive to light and accommodation. Extraocular muscles intact. Anicteric sclerae. Moist mucous membranes. NECK: JVD, no bruit. CARDIOVASCULAR: Regular. No S4. Normal S1 and S2. No S3. No murmurs, rubs or gallops. PULMONARY: Clear to auscultation bilaterally. No rales, rhonchi, or wheezing. ABDOMEN: Bowel sounds x4, soft. No rebound, guarding, tenderness. No organomegaly. EXTREMITIES: No clubbing, cyanosis or edema. +2 pedal pulses bilaterally. SKIN: Warm and dry. TEST RESULTS: Coronary CT scan in June 2015 showed normal coronary arteries with no significant atherosclerosis or coronary anomalies, calcium score of 0. Troponin negative x3. EKG performed in the Emergency Department independently reviewed at this time shows normal sinus rhythm with sinus arrhythmia at 71 beats per minute, questionable old inferior infarct, no significant change compared to previous studies. Exercise stress echocardiogram was nonischemic at over 11 minutes of exercise on a Mathew protocol, no arrhythmias, normal heart rate and blood pressure response to exercise. IMPRESSION: 1. Chest discomfort, noncardiac with nonischemic exercise stress echocardiogram. 2. History of right ventricular enlargement, resolved. 3. Obstructive sleep apnea, recently started on CPAP. RECOMMENDATIONS: It was my pleasure to see Mr. Carolina in consultation today. From a cardiac standpoint, no further cardiac testing or intervention is necessary. The patient was counseled that while his chest discomfort is noncardiac, I recommend that he follow up with his primary care physician for further workup of the chest discomfort. Otherwise, his RV has improved with the initiation of CPAP, so no cardiac follow up is necessary at this time. It looks like he is already scheduled to follow up with Robbie Briones in October and will keep that appointment. No medication changes will be made at this time. BHAVIN
[2017-08-06 15:17] VITALS: BP 107/73; PULSE 58; TEMP 36.5; O2SAT 94
--- NOTE | 2017-08-06 15:25 | EXERCISE STRESS ECHO ---
*NOTICE TO RECEIVING REPUBLICAN AGENCY This information is strictly Confidential and protected under [place] law. [place] law prohibits you from making any further disclosure of this information unless further disclosure is expressly permitted by the written consent of the person to whom it pertains or is authorized by law. A general authorization for the release of medical or other information is not sufficient for this purpose. Hospital accepts no responsibility if the information is made available to any other person, INCLUDING THE PATIENT. Interpretation Summary * Name: ELICIA PADGETT Study Date: 08/06/2017 08:40 AM BP: 115/74 mmHg * Patient Location: [facility]\S\N280\S\2 HR: 61 * : 1975 (M/d/yyyy) Gender: Male Height: 72 in * Age: 42 yrs Ethnicity: CA Weight: 231 lb * Ordering Physician: Brandon Paulson * Referring Physician: Self, Referred * Performed By: Rica Quinn RDCS * * Reason For Study: CHEST PAIN * BSA: 2.3 m2 * -- Conclusions -- * Nonischemic exercise stress echocardiogram. * Normal HR and BP response to exercise. * Above average exercise tolerance. * At rest, normal LV chamber size with midl concentric LVH. * Normal LV systolic function, EF 55-60%. * No segmental left ventricular wall motion abnormalities are noted. * Grade I diastolic dysfunction. * Mild RV chamber enlargement, normal systolic function. * No significant valvular pathology. Procedure Details * ECHOEX, CPT #79677 * A contrast injection of Definity was performed to improve assessment of LV function. * Contrast was injected into an intravenous site in the left arm. * One vial of Definity ultrasound contrast was diluted in normal saline to a total volume of 10 ml. A total of '4' ml of solution was administered during imaging. * Lot # [id number] of Definity utilized for procedure. * Expiration date AUG 14. * The attending nurse who injected the contrast agent was LISA CLEARY RN. Left Ventricle * The left ventricle is normal in size. * There is mild concentric left ventricular hypertrophy. * Ejection Fraction = 55-60%. * Left ventricular systolic function is normal. * No segmental left ventricular wall motion abnormalities are noted. * Resting wall motion: Normal. Stress wall motion: Appropriate increase in Left ventricular systolic function and decrease in cavity size. No stress induced segmental wall motion abnormalities. Right Ventricle * The right ventricle is mildly dilated. * The right ventricular systolic function is normal as assessed by tricuspid annular plane systolic excursion (TAPSE) (normal >1.5 cm). Atria * The left atrial size is normal. * Right atrial size is normal. * No ASD detected; PFO is not assessed. Mitral Valve * The mitral valve is normal in structure and function. Tricuspid Valve * The tricuspid valve is normal in structure and function. Aortic Valve * The aortic valve is normal in structure and function. Pulmonic Valve * The pulmonary valve is not well seen, but the Doppler examination is normal without significant regurgitation or stenosis. Great Vessels * The aortic root is normal size. Pericardium * There is no pericardial effusion. Stress Parameters * Normal baseline electrocardiogram. * Stress ECG: No ST changes. No arrhythmias. * No arrhythmia were noted with stress. * The stress portion of this study was personally supervised by the undersigned interpreting physician. * Rest heart rate was '61' BPM. * Rest blood pressure was '115/74' * Maximum heart rate achieved was 176 bpm. * Maximum heart rate was 98 % of maximum age-predicted heart rate. * Maximum blood pressure was '176/83' * Total exercise time was '11:12' * Maximum exercise MET level achieved was '13.40' METS * Maximum treadmill speed was '4.20' miles per hour. * Maximum treadmill elevation was '16.00'% grade. * Exercise was terminated due to 'ACHIEVING TARGET HR' Left Ventricular Diastolic Function * Grade I diastolic dysfunction, (abnormal relaxation pattern). MMode 2D Measurements and Calculations IVSd 1.2 cm IVSs 1.7 cm LVIDd 4.4 cm LVIDs 3.0 cm LVPWd 1.5 cm LVPWs 1.6 cm IVS/LVPW 0.82 FS 31.8 % EDV(Teich) 85.6 ml ESV(Teich) 34.1 ml EF(Teich) 60.1 % EDV(cubed) 82.6 ml ESV(cubed) 26.2 ml EF(cubed) 68.3 % % IVS thick 39.4 % % LVPW thick 8.2 % LV mass(C)d 230.1 grams LV mass(C)dI 101.6 grams/m\S\2 LV mass(C)s 189.7 grams LV mass(C)sI 83.8 grams/m\S\2 SV(Teich) 51.4 ml SI(Teich) 22.7 ml/m\S\2 SV(cubed) 56.4 ml SI(cubed) 24.9 ml/m\S\2 Ao root diam 3.4 cm Ao root area 9.0 cm\S\2 LA dimension 3.9 cm LA/Ao 1.1 LVAd ap4 38.2 cm\S\2 LVLd ap4 10.2 cm EDV(MOD-sp4) 119.0 ml LVAs ap4 20.3 cm\S\2 LVLs ap4 8.3 cm ESV(MOD-sp4) 43.9 ml EF(MOD-sp4) 63.1 % LVAd ap2 34.0 cm\S\2 LVLd ap2 9.5 cm EDV(MOD-sp2) 107.0 ml LVAs ap2 19.9 cm\S\2 LVLs ap2 8.0 cm ESV(MOD-sp2) 43.6 ml EF(MOD-sp2) 59.3 % SV(MOD-sp4) 75.1 ml SI(MOD-sp4) 33.2 ml/m\S\2 SV(MOD-sp2) 63.4 ml SI(MOD-sp2) 28.0 ml/m\S\2 Doppler Measurements and Calculations MV E max thierry 53.7 cm/sec MV A max thierry 59.9 cm/sec MV E/A 0.90 MV dec time 0.31 sec Ao V2 max 111.5 cm/sec Ao max PG 5.0 mmHg Ao max PG (full) 2.0 mmHg LV V1 max PG 3.0 mmHg LV V1 max 86.3 cm/sec TR max thierry 181.9 cm/sec
--- NOTE | 2017-08-06 15:47 | Discharge Instructions ---
Discharge Instructions Date of Service Aug 06, 2017. Admission Reason for Admission: Chest Pain Discharge Discharge Diagnosis / Problem: Chest pain -negative Stress ECHO Discharge Goals Goal(s): Prevent Disease Progression Activity Recommendations Activity Limitations: resume your previous activity . Instructions / Follow-Up Instructions / Follow-Up DR Lopez on 08/13/17 at 10:45 AM.Pl keep cardiology appointment Current Hospital Diet Patient's current hospital diet: AHA Diet (Heart Healthy) Discharge Diet Recommended Diet: AHA Diet (Heart Healthy) Pending Studies Studies pending at discharge: no Laboratory Results Lipid Panel Test 08/06/17 06:43 Range/Units Triglycerides Level 113 0-150 mg/dl Cholesterol Level 163 0-200 mg/dl HDL Cholesterol 41 mg/dl Cholesterol/HDL Ratio 4.0 LDL Cholesterol, Calculated 99 mg/dl Medical Emergencies . Who to Call and When: Medical Emergencies: If at any time you feel your situation is an emergency, please call 911 immediately. . Non-Emergent Contact Non-Emergency issues call your: Primary Care Provider . Past History Medical & Surgical History: (1) Chest pain (2) MADAI on CPAP (3) Left sided chest pain (4) S/P appy . "Provider Documentation" section prepared by Jairon Haque. . VTE Core Measure Inpt VTE Proph given/why not?: Enoxaparin (Lovenox)SQ
[2017-08-06 15:49] VITALS: BP 107/73; PULSE 58; TEMP 36.5; O2SAT 94
--- NOTE | 2017-08-07 07:52 | Discharge Summary ---
Discharge Summary Date of Service Aug 07, 2017. Discharge Summary Admission Date: Aug 05, 2017 at 21:00 Discharge Date: Aug 06, 2017 Discharge Disposition: Home Principal Diagnosis: Chest pain -negative Stress ECHO Secondary Diagnoses/Problems: Please see H&P and Hospital Progress note Consultations: Cardiology Medication Reconciliation Continued Medications: Aspirin Enteric Coated (Ecotrin Or Generic) 81 Mg Tab 81 MG PO DAILY, TAB Lisinopril (Prinivil) 30 Mg Tab 30 MG PO QPM, TAB Lorazepam (Ativan) 0.5 Mg Tab 0.5 MG PO DAILY PRN for Anxiety, TAB Metoprolol Tartrate (Lopressor) (Lopressor) 25 Mg Tab 25 MG PO QAM, TAB Omeprazole (Prilosec) 20 Mg Cap 20 MG PO DAILY, CAP Admission Information HPI (per Admitting provider): 42 yo M with h/o HTN and strong family history of early CAD presents with constant chest pain that began on Saturday. No precipitating triggers making the pain worse except for stress, and he defines the discomfort as a pressure. He states that he was alone at work tonight and was able to run flights of stairs without making the pain or shortness of breath any worse, but the prolonged nature of the abnormal pressure is what made him concerned to come in. Per his he has had multiple episodes of discomfort in his chest that made her worried but he refused to see a doctor during those times. The frequency of this is described as twice weekly on average. 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 He does reports some diaphoresis, nausea and shortness of breath that are associated with the chest pain. He otherwise denies any fevers, chills, visual changes, neck pain, vomiting, abdominal or back pain, GI bleeding issues, urinary issues, numbness weakness or any skin changes. He reports that his last stress test was over 4 years ago. 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 Surgical Problems: (1) S/P appy Status: Chronic Family History Heart disease Social History Smoking Status: Never Smoker Smokeless Tobacco Use: Unknown Drug Use: none Marital Status: Occupational Status: employed Immunizations History of Influenza Vaccine: No History of Tetanus Vaccine?: Yes History of Pneumococcal: Yes History of Hepatitis B Vaccine: Yes Multi-Drug Resistant Organisms History of MDRO: No Allergies Coded Allergies: Naproxen (Verified Allergy, tongue swelling, 11/04/13) Home Medications Scheduled Aspirin Enteric Coated (Ecotrin Or Generic), 81 MG PO DAILY Lisinopril (Prinivil), 30 MG PO QPM Metoprolol Tartrate (Lopressor) (Lopressor), 25 MG PO QAM Omeprazole (Prilosec), 20 MG PO DAILY Scheduled PRN Lorazepam (Ativan), 0.5 MG PO DAILY PRN for Anxiety Review of Systems At least ten systems reviewed and negative except as indicated in HPI. Physical Ex - H&P Physical Exam Vital Signs Date Time Temp Pulse Resp B/P (MAP) Pulse Ox O2 Delivery O2 Flow Rate FiO2 08/05/17 22:16 73 16 130/88 97 08/05/17 21:43 73 16 130/88 97 Room Air 08/05/17 21:00 73 17 127/86 96 Room Air 08/05/17 20:33 70 20 138/79 96 Room Air 08/05/17 19:40 81 21 138/86 96 Room Air 08/05/17 19:23 77 18 117/81 95 Room Air 08/05/17 19:15 71 08/05/17 19:09 94 Room Air 08/05/17 18:17 36.6 66 18 157/97 97 Room Air General Appearance: WD/WN, no apparent distress Head: normocephalic, atraumatic Eyes: normal inspection, PERRL, sclerae normal ENT: hearing grossly normal, pharynx normal Neck: supple, no adenopathy, no JVD, trachea midline Respiratory/Chest: chest non-tender, lungs clear, normal breath sounds, no respiratory distress, no accessory muscle use Cardiovascular: regular rate, rhythm, no edema, no gallop, no JVD, no murmur, normal peripheral pulses Abdomen/GI: normal bowel sounds, non tender, soft Back: normal inspection Extremities/Musculoskelatal: normal inspection, no calf tenderness, no pedal edema Neurologic/Psych: plaster foreman II-XII nml as tested, no motor/sensory deficits, alert, normal mood/affect, oriented x 3 Skin: normal color, warm/dry, no rash Diagnostics - H&P Diagnostics Laboratory Results 08/05/17 19:28 Red Blood Count 5.54, Mean Corpuscular Volume 84.1, Mean Corpuscular Hemoglobin 29.6, Mean Corpuscular Hemoglobin Concent 35.2, Mean Platelet Volume 9.9, Neutrophils (%) (Auto) 58.1, Lymphocytes (%) (Auto) 28.7, Monocytes (%) (Auto) 8.5, Eosinophils (%) (Auto) 3.9, Basophils (%) (Auto) 0.6, Neutrophils # (Auto) 2.81, Lymphocytes # (Auto) 1.39, Monocytes # (Auto) 0.41, Eosinophils # (Auto) 0.19, Basophils # (Auto) 0.03 08/05/17 19:28 Test 08/05/17 19:28 08/05/17 22:25 White Blood Count 4.84 K/uL (4.8-10.8) Red Blood Count 5.54 M/uL (4.7-6.1) Hemoglobin 16.4 g/dL (14.0-18.0) Hematocrit 46.6 % (42-52) Mean Corpuscular Volume 84.1 fL (80-100) Mean Corpuscular Hemoglobin 29.6 pg (25-34) Mean Corpuscular Hemoglobin Concent 35.2 g/dl (32-36) Platelet Count 186 K/uL (130-400) Mean Platelet Volume 9.9 fL (7.4-10.4) Neutrophils (%) (Auto) 58.1 % Lymphocytes (%) (Auto) 28.7 % Monocytes (%) (Auto) 8.5 % Eosinophils (%) (Auto) 3.9 % Basophils (%) (Auto) 0.6 % Neutrophils # (Auto) 2.81 K/uL (1.4-6.5) Lymphocytes # (Auto) 1.39 K/uL (1.2-3.4) Monocytes # (Auto) 0.41 K/uL (0.11-0.59) Eosinophils # (Auto) 0.19 K/uL (0-0.5) Basophils # (Auto) 0.03 K/uL (0-0.2) RDW Standard Deviation 37.6 fL (36.4-46.3) RDW Coefficient of Variation 12.3 % (11.5-14.5) Immature Granulocyte % (Auto) 0.2 % Immature Granulocyte # (Auto) 0.01 K/uL (0.00-0.02) Anion Gap 7.0 mmol/L (3-11) Est Creatinine Clear Calc Drug Dose 126.7 ml/min Estimated GFR () 112.5 Estimated GFR (Non- 97.1 BUN/Creatinine Ratio 10.7 (10-20) Calcium Level 9.1 mg/dl (8.5-10.1) Total Bilirubin 1.0 mg/dl (0.2-1) Direct Bilirubin 0.2 mg/dl (0-0.2) Aspartate Amino Transf (AST/SGOT) 27 U/L (15-37) Alanine Aminotransferase (ALT/SGPT) 45 U/L (12-78) Alkaline Phosphatase 68 U/L (45-117) Total Creatine Kinase 180 U/L (39-308) Creatine Kinase MB 3.2 ng/ml (0.5-3.6) Creatine Kinase MB Ratio 1.8 (0-3.0) Troponin I < 0.015 ng/ml (0-0.045) Total Protein 7.7 gm/dl (6.4-8.2) Albumin 4.3 gm/dl (3.4-5.0) Lipase 152 U/L (73-393) Results Past 24 Hours Test 08/05/17 19:28 08/05/17 22:25 Range/Units White Blood Count 4.84 4.8-10.8 K/uL Red Blood Count 5.54 4.7-6.1 M/uL Hemoglobin 16.4 14.0-18.0 g/dL Hematocrit 46.6 42-52 % Mean Corpuscular Volume 84.1 80-100 fL Mean Corpuscular Hemoglobin 29.6 25-34 pg Mean Corpuscular Hemoglobin Concent 35.2 32-36 g/dl Platelet Count 186 130-400 K/uL Mean Platelet Volume 9.9 7.4-10.4 fL Neutrophils (%) (Auto) 58.1 % Lymphocytes (%) (Auto) 28.7 % Monocytes (%) (Auto) 8.5 % Eosinophils (%) (Auto) 3.9 % Basophils (%) (Auto) 0.6 % Neutrophils # (Auto) 2.81 1.4-6.5 K/uL Lymphocytes # (Auto) 1.39 1.2-3.4 K/uL Monocytes # (Auto) 0.41 0.11-0.59 K/uL Eosinophils # (Auto) 0.19 0-0.5 K/uL Basophils # (Auto) 0.03 0-0.2 K/uL RDW Standard Deviation 37.6 36.4-46.3 fL RDW Coefficient of Variation 12.3 11.5-14.5 % Immature Granulocyte % (Auto) 0.2 % Immature Granulocyte # (Auto) 0.01 0.00-0.02 K/uL Sodium Level 139 136-145 mmol/L Potassium Level 3.7 3.5-5.1 mmol/L Chloride Level 106 98-107 mmol/L Carbon Dioxide Level 26 21-32 mmol/L Anion Gap 7.0 3-11 mmol/L Blood Urea Nitrogen 10 7-18 mg/dl Creatinine 0.96 0.60-1.40 mg/dl Est Creatinine Clear Calc Drug Dose 126.7 ml/min Estimated GFR () 112.5 Estimated GFR (Non- 97.1 BUN/Creatinine Ratio 10.7 10-20 Random Glucose 90 70-99 mg/dl Calcium Level 9.1 8.5-10.1 mg/dl Total Bilirubin 1.0 0.2-1 mg/dl Direct Bilirubin 0.2 0-0.2 mg/dl Aspartate Amino Transf (AST/SGOT) 27 15-37 U/L Alanine Aminotransferase (ALT/SGPT) 45 12-78 U/L Alkaline Phosphatase 68 45-117 U/L Total Creatine Kinase 180 39-308 U/L Creatine Kinase MB 3.2 0.5-3.6 ng/ml Creatine Kinase MB Ratio 1.8 0-3.0 Troponin I < 0.015 0-0.045 ng/ml Total Protein 7.7 6.4-8.2 gm/dl Albumin 4.3 3.4-5.0 gm/dl Lipase 152 73-393 U/L Diagnostic Radiology CHEST ONE VIEW PORTABLE HISTORY: Atypical CHEST PAIN COMPARISON: Chest 11/04/2013. FINDINGS: The lungs are clear. Cardiac silhouette is normal in size. No pleural effusions. No pneumothorax. IMPRESSION: No acute process. EKG SR 71 Impression - H&P Impression Assessment and Plan 42 yo M with family history of CAD and HTN presents with chest pain. 1. Chest pain- risk factors for CAD including family history and HTN. ASA, Lipitor 80, nitro given. Currently pain-free. Trend trops. Morphine/Nitro PRN. 2. HTN-cont current meds 3. MAADI-CPAP ordered DVT proph-Lovenox Full Code [facility] Care Telemetry Resuscitation Status FULL RESUSCITATION VTE Prophylaxis VTE Risk Assessment Done? Y/N: Yes Risk Level: Moderate Given or contraindicated: Enoxaparin (Lovenox)SQ Physical Exam (per Admitting): General Appearance: WD/WN, no apparent distress Head: normocephalic, atraumatic Eyes: normal inspection, PERRL, sclerae normal ENT: hearing grossly normal, pharynx normal Neck: supple, no adenopathy, no JVD, trachea midline Respiratory/Chest: chest non-tender, lungs clear, normal breath sounds, no respiratory distress, no accessory muscle use Cardiovascular: regular rate, rhythm, no edema, no gallop, no JVD, no murmur , normal peripheral pulses Abdomen/GI: normal bowel sounds, non tender, soft Back: normal inspection Extremities/Musculoskelatal: normal inspection, no calf tenderness, no pedal edema Neurologic/Psych: plaster foreman II-XII nml as tested, no motor/sensory deficits, alert , normal mood/affect, oriented x 3 Skin: normal color, warm/dry, no rash Hospital Course 42 yo M with family history of CAD and HTN presents with chest pain. Chest pain- Risk factors for CAD including family history and HTN. ASA, Serial Diro are neg for any ACS ,EKGs -negative for any Ischemia Continue Lipitor 80, nitro given. Appreciate cardiology input Will have Stress test today stress ECHO:: Nonischemic exercise stress echocardiogram. * Normal HR and BP response to exercise. * Above average exercise tolerance. * At rest, normal LV chamber size with midl concentric LVH. * Normal LV systolic function, EF 55-60%. * No segmental left ventricular wall motion abnormalities are noted. * Grade I diastolic dysfunction. * Mild RV chamber enlargement, normal systolic function. * No significant valvular pathology. MADAI-CPAP ordered DVT proph-Lovenox Full Code Dispo- Likely to go home after the Stress test Total time spent on discharge = 35 minutes This includes examination of the patient, discharge planning, medication reconciliation, and communication with other providers. Discharge Instructions Date of Service Aug 06, 2017. Admission Reason for Admission: Chest Pain Discharge Discharge Diagnosis / Problem: Chest pain -negative Stress ECHO Discharge Goals Goal(s): Prevent Disease Progression Activity Recommendations Activity Limitations: resume your previous activity . Instructions / Follow-Up Instructions / Follow-Up DR Lopez on 08/13/17 at 10:45 AM.Pl keep cardiology appointment Current Hospital Diet Patient's current hospital diet: AHA Diet (Heart Healthy) Discharge Diet Recommended Diet: AHA Diet (Heart Healthy) Pending Studies Studies pending at discharge: no Laboratory Results Lipid Panel Test 08/06/17 06:43 Range/Units Triglycerides Level 113 0-150 mg/dl Cholesterol Level 163 0-200 mg/dl HDL Cholesterol 41 mg/dl Cholesterol/HDL Ratio 4.0 LDL Cholesterol, Calculated 99 mg/dl Medical Emergencies . Who to Call and When: Medical Emergencies: If at any time you feel your situation is an emergency, please call 911 immediately. . Non-Emergent Contact Non-Emergency issues call your: Primary Care Provider . Past History Medical & Surgical History: (1) Chest pain (2) MADAI on CPAP (3) Left sided chest pain (4) S/P appy . "Provider Documentation" section prepared by Jairon Haque. . VTE Core Measure Inpt VTE Proph given/why not?: Enoxaparin (Lovenox)SQ <Electronically signed by Jairon Haque M.D.> Signed: 08/06/17 1542 Additional Copies To Bela Lopez M.D.
== END 2017-08-06 16:35 | disposition home or self-care (01) ==
LOC: C.EDB 18:15 → C.MED 21:00 → ENRESERV 21:24
PROVIDERS: ADMIT Hospitalist; ATTEND Internal Medicine
DX: R07.9 Chest pain, unspecified (principal); I10 Essential (primary) hypertension; I25.10 Atherosclerotic heart disease of native coronary artery without angina pectoris; G47.33 Obstructive sleep apnea (adult) (pediatric); Z90.89 Acquired absence of other organs; Z79.82 Long term (current) use of aspirin; Z79.899 Other long term (current) drug therapy; Z82.49 Family history of ischemic heart disease and other diseases of the circulatory system